=== PATIENT | male | born 1950 | race Caucasian/White ===

== ENCOUNTER 2017-11-17 02:28 | Day surgery (SDC) | payer BC, MEDICARE ==
[~2017-11-17] VITALS: Ht 172.7 cm; Wt 104.0 kg
[~2017-11-17 02:28] MED LIST: ASPI81CH PO; IBUPROFEN 200MG PO; NIFE60ER PO; Pravachol80 MG PO; Prinivil10 MG PO; TRAZ50 PO; Toprol Xl25 MG PO
== END 2017-11-17 11:00 | disposition home or self-care (01) ==
LOC: MHTC 02:28
PROC: B211YZZ Fluoroscopy of Multiple Coronary Arteries using Other Contrast (ICD-10-PCS; principal; 2017-11-17)
PROC: 4A023N7 Measurement of Cardiac Sampling and Pressure, Left Heart, Percutaneous Approach (ICD-10-PCS; principal; 2017-11-17)
DX: I25.10 Atherosclerotic heart disease of native coronary artery without angina pectoris (principal); R94.39 Abnormal result of other cardiovascular function study; R06.02 Shortness of breath; I10 Essential (primary) hypertension; E78.5 Hyperlipidemia, unspecified; E66.9 Obesity, unspecified
CPT/HCPCS: 93458; 99152; 99153; C1769; C1894; J1644; J2250; J3010; J7030; Q9967

== ENCOUNTER 2018-03-12 11:17 | Inpatient (IN) | payer MEDICARE, BC ==
[~2018-03-12] VITALS: Ht 167.6 cm; Wt 98.9 kg
[2018-03-17] MEDS ORDERED: ASPI325EC PO (07:52)
[2018-03-17] MEDS ORDERED: ROXICODONE5 MG PO (07:53)
[2018-03-17] MEDS ORDERED: PROM25 PO (07:54)
[2018-03-18 03:53] LABS: BASOPHILS ABSOLUTE AUTO 0.01 K/mm3 (0.00-0.23); BASOPHILS PERCENT AUTO 0 % (0-2); EOSINOPHILS PERCENT AUTO 0 % (0-6); Hematocrit 36.9 % (37.0-53.0); Hemoglobin 12.1 g/dL (13.5-17.5); IMMATURE GRAN ABSOLUTE AUTO 0.07 K/mm3 (0.00-0.10); IMMATURE GRAN PERCENT AUTO 0 % (0-1); LYMPHOCYTES ABSOLUTE AUTO 1.16 K/mm3 (0.84-5.20); LYMPHOCYTES PERCENT AUTO 7 % (21-46); MONOCYTES ABSOLUTE AUTO 2.23 K/mm3 (0.16-1.47); MONOCYTES PERCENT AUTO 13 % (4-13); Mean Corpuscular HGB 27.1 pg (26.0-34.0); Mean Corpuscular HGB Conc 32.8 g/dL (31.5-36.5); Mean Platelet Volume 10.7 fL (9.1-12.4); NEUTROPHILS ABSOLUTE AUTO 14.33 K/mm3 (1.96-9.15); NEUTROPHILS PERCENT AUTO 81 % (41-73); Platelet Count 189 K/mm3 (150-400); RDW Coefficient Variation 14.3 % (11.7-14.2); RDW Standard Deviation 42.7 fL (35.1-46.3); Red Blood Cell Count 4.47 M/mm3 (4.30-5.90)
[2018-03-18 03:57] LABS: Mean Corpuscular Volume 83 fL (80-100)
[2018-03-18 04:09] LABS: Anion Gap 9 mmol/L (6-16); Blood Urea Nitrogen 23 mg/dL (8-24); Bun/Creatinine Ratio 30.1 (12.0-20.0); CO2, Blood 26 mmol/L (21-32); Calcium, Blood 8.9 mg/dL (8.5-10.1); Chloride, Blood 103 mmol/L (98-108); Creatinine, Blood 0.76 mg/dL (0.60-1.20); Glomerular Filtration Rate >60 (60-); Glucose, Blood 156 mg/dL (70-99); Magnesium, Blood 1.9 mg/dL (1.6-2.4); Potassium, Blood 4.4 mmol/L (3.5-5.5); Sodium, Blood 138 mmol/L (136-145)
[2018-03-18] MEDS ORDERED: Percocet 5-3251 EACH PO (12:06)
== END 2018-03-18 12:28 | disposition home or self-care (01) | DRG 470 ==
LOC: SURS 03-17 05:51 → PRE IP 03-17 07:30 → SURS 03-17 11:17
PROVIDERS: Orthopaedic Surgery
PROC: 0SRB04A Replacement of Left Hip Joint with Ceramic on Polyethylene Synthetic Substitute, Uncemented, Open Approach (ICD-10-PCS; principal; 2018-03-17 07:30)
DX: M16.12 Unilateral primary osteoarthritis, left hip (principal); M87.852 Other osteonecrosis, left femur; I25.10 Atherosclerotic heart disease of native coronary artery without angina pectoris; I45.10 Unspecified right bundle-branch block; I44.4 Left anterior fascicular block; I10 Essential (primary) hypertension; E78.5 Hyperlipidemia, unspecified; I25.2 Old myocardial infarction; Z96.641 Presence of right artificial hip joint; Z98.2 Presence of cerebrospinal fluid drainage device; Z79.899 Other long term (current) drug therapy; Z88.5 Allergy status to narcotic agent; Z85.828 Personal history of other malignant neoplasm of skin; Z98.1 Arthrodesis status
CPT/HCPCS: 36415; 72170; 80048; 83735; 85025; 86850; 86900; 86901; 97110; 97116; 97161; 97165; 97530; 97535; C1713; C1776; G8978; G8979; G8987; G8988; G8989; J0171; J0330; J0690; J0735; J1885; J2250; J2370; J2710; J2795; J3010; J3370; J7120

== ENCOUNTER → 2019-11-22 | Outpatient (CLI) | payer MEDICARE, BC ==
[~2019-11-22] MED LIST changes: +ASPI325EC PO; +PROM25 PO; +Percocet 5-3251 EACH PO; +ROXICODONE5 MG PO
== END | disposition home or self-care (01) ==
LOC: PLD 11:50 → LAB SHORT 11:50
DX: C44.41 Basal cell carcinoma of skin of scalp and neck (principal)
CPT/HCPCS: 88305

== ENCOUNTER → 2019-12-06 | Outpatient (CLI) | payer MEDICARE, BC | END | disposition home or self-care (01) | LOC: PLD 08:05 → LAB SHORT 08:05 | DX: C44.41 Basal cell carcinoma of skin of scalp and neck (principal) | CPT/HCPCS: 88305 ==

== ENCOUNTER 2021-05-02 07:37 | Day surgery (SDC) | payer MEDICARE, BC ==
[~2021-05-02] VITALS: Ht 170.2 cm; Wt 95.7 kg
== END 2021-05-02 09:24 | disposition home or self-care (01) ==
LOC: ORSCSDS 07:37
PROVIDERS: Surgery
PROC: 0DB48ZX Excision of Esophagogastric Junction, Via Natural or Artificial Opening Endoscopic, Diagnostic (ICD-10-PCS; principal; 2021-05-02 08:45)
PROC: 0DB68ZX Excision of Stomach, Via Natural or Artificial Opening Endoscopic, Diagnostic (ICD-10-PCS; principal; 2021-05-02 08:45)
DX: K21.00 Gastro-esophageal reflux disease with esophagitis, without bleeding (principal); R13.10 Dysphagia, unspecified; I25.10 Atherosclerotic heart disease of native coronary artery without angina pectoris; I10 Essential (primary) hypertension; E78.5 Hyperlipidemia, unspecified; E11.9 Type 2 diabetes mellitus without complications; Z79.82 Long term (current) use of aspirin; Z79.899 Other long term (current) drug therapy
CPT/HCPCS: 82947; 88305; 88342; J2704; J7120

== ENCOUNTER 2024-07-04 07:53 | Day surgery (SDC) | payer MEDICARE, BC ==
[2024-07-04] VITALS (8 sets, daily range): BP systolic 114–172; BP diastolic 69–92
[~2024-07-04] VITALS: Ht 170.2 cm; Wt 97.7 kg
[~2024-07-04 07:53] MED LIST changes: +ATOR40TA PO; +LOSA50 PO; +MAGNESIUM; +METO50ER PO; +MULTIVIT WITH IRON; +NITR.4SL SL
[2024-07-04] MEDS ORDERED: Verapamil HCL 2.5 MG/ML 2ML Injection ONE (11:05)
[2024-07-04] MEDS ORDERED: NS 250 ML IV ONE (11:06)
[2024-07-04] MEDS ORDERED: Heparin Sodium 1000 Units/ML 10ML MDV ONE ×2 (11:06→11:37)
[2024-07-04] MEDS ORDERED: Nitroglycerin 2 MG/20 ML BTL ONE (11:06)
[2024-07-04] MEDS ORDERED: NS 1,000 ML IV ONE ×2 (11:06→11:35)
[2024-07-04] MEDS ORDERED: FentaNYL Citrate 50 MCG/ML 2 ML Injection ONE ×2 (11:34→12:58)
[2024-07-04] MEDS ORDERED: Midazolam HCl 1MG / ML 2ML Vial ONE (11:35)
[2024-07-04] MEDS ORDERED: NS 500 ML IV ONE (11:37)
--- NOTE | 2024-07-04 14:00 | NUR ---
PATIENT ARRIVED TO RECOVERY ROOM. HOB FLAT. R GROIN SITE C/D/I SOFT/NONTENDER, NO EVIDENCE OF BLEEDING
--- NOTE | 2024-07-04 14:45 | NUR ---
PRESENT AT BEDSIDE DISCUSSING RESULTS OF CORONARY ANGIOGRAM. R GROIN SITE C/D/I SOFT/NONTENDER, NO EVIDENCE OF BLEEDING. VSS ON RA
[2024-07-04] MEDS ORDERED: HydrALAZINE HCl 20 MG / ML 1ML Vial ONE (14:48)
--- NOTE | 2024-07-04 14:50 | NUR ---
10 MG IV HYDRALAZINE GIVEN PER VERBAL ORDER
--- NOTE | 2024-07-04 15:06 | NUR ---
PATIENT TOLERATING PO INTAKE WELL. R GROIN SITE SOFT/NONTENDER, NO EVIDENCE OF BLEEDING. VSS ON RA
[2024-07-04] MEDS ORDERED: Acetaminophen 325 MG TABLET ONE (15:16)
--- NOTE | 2024-07-04 15:25 | NUR ---
650 MG PO TYLENOL GIVEN FOR CHRONIC BACK PAIN. R GROIN SITE C/D/I SOFT/NONTENDER, NO EVIDENCE OF BLEEDING. VSS ON RA
--- NOTE | 2024-07-04 15:43 | NUR ---
HOB ELEVATED 30 DEGREES. R GROIN SITE C/D/I SOFT/NONTENDER, NO EVIDENCE OF BLEEDING. PATIENT USING URINAL IN BED, VOIDING WITHOUT DIFFICULTY. VSS ON RA
--- NOTE | 2024-07-04 16:16 | NUR ---
PT AND VERBALIZED UNDERSTANDING OF WRITTEN AND VERBAL D/C INST. PT AMB TO BATHROOM /C SBA. TOLERATED WELL. NEG BLEEDING OR SWELLING R GROIN. IV REMOVED.
== END 2024-07-04 16:36 | disposition home or self-care (01) ==
LOC: MHTC 07:53
DX: I25.10 Atherosclerotic heart disease of native coronary artery without angina pectoris (principal); I10 Essential (primary) hypertension; E78.5 Hyperlipidemia, unspecified; E11.9 Type 2 diabetes mellitus without complications; Z95.1 Presence of aortocoronary bypass graft; Z88.5 Allergy status to narcotic agent
CPT/HCPCS: 76937; 82947; 93461; 99152; 99153; A9270; C1760; C1769; C1887; C1894; J0360; J1644; J2250; J3010; J7030; J7040; J7050; Q9967